=== PATIENT | female | born 1975 | race Hispanic/Latino ===

== ENCOUNTER 2016-10-04 11:15 | Outpatient (CLI) | payer MEDICAID, SELFPAY | END 2016-10-04 11:16 | disposition home or self-care (01) | LOC: MADLABBHPM 11:15 | PROVIDERS: ATTEND Family Medicine | DX: R30.0 Dysuria (principal) | CPT/HCPCS: 36415; 87077; 87086; 87186 ==

== ENCOUNTER 2016-11-23 15:25 | Outpatient (CLI) | payer MEDICAID | END 2016-11-23 15:26 | LOC: MADLABBHPM 15:25 | PROVIDERS: ATTEND Family Medicine | DX: R30.0 Dysuria (principal) | CPT/HCPCS: 87077; 87086; 87186 ==

== ENCOUNTER 2017-03-30 10:17 | Outpatient (CLI) | payer MEDICAID | END 2017-03-30 10:18 | disposition home or self-care (01) | LOC: MADLABBHPM 10:17 | PROVIDERS: ATTEND Family Medicine | DX: R30.0 Dysuria (principal) | CPT/HCPCS: 36415; 87077; 87086; 87186 ==

== ENCOUNTER 2020-07-13 12:40 | Outpatient (CLI) | payer OTHER ==
--- NOTE | 2020-07-13 13:25 | RAD ---
Chest 2 views HISTORY: Dyspnea. COMPARISON: 06/29/2020. FINDINGS: Cardiac silhouette and pulmonary vasculature are unremarkable. Mediastinum is midline. No confluent airspace consolidation, pneumothorax, or pleural fluid. IMPRESSION : No abnormalities are demonstrated.
== END 2020-07-13 12:41 | disposition home or self-care (01) ==
LOC: MADLAB 12:40
PROVIDERS: ATTEND Family Medicine
DX: J12.82 Pneumonia due to coronavirus disease 2019 (principal); R00.2 Palpitations
CPT/HCPCS: 71046; 93005; 93010